=== PATIENT | female | born 1945 | race Caucasian/White ===

== ENCOUNTER 2024-10-26 09:57 | Outpatient (RCR) | payer MEDICARE, MEDICAID, SELFPAY | END 2024-11-28 13:49 | disposition home or self-care (01) | LOC: HO.WCC 09:57 | PROVIDERS: PCP Physician Assistant Medical; Visit Provider Surgery | DX: Q82.0 Hereditary lymphedema (principal) | CPT/HCPCS: 99202; 99213 ==